=== PATIENT | male | born 1990 | race Caucasian/White ===

== ENCOUNTER 2019-07-14 19:28 | Observation (INO) ==
[2019-07-14 20:02] LABS: Basophils # 0.1 K/mcL (0.0-0.2); Basophils % 0.4 %; Eosinophils # 0.1 K/mcL (0.0-0.6); Eosinophils % 0.4 %; Hematocrit 41.1 % (37.5-50.1); Immature Granulocytes % 1.2 % (0-4); Lymphocytes # 0.4 K/mcL (0.6-4.6); Lymphocytes % 2.3 %; Mean Corpuscular HGB Conc 36.5 g/dL (31.6-35.5); Mean Corpuscular Hemoglobin 30.2 pg (28.0-33.3); Mean Corpuscular Volume 82.7 fL (83.0-100.0); Mean Platelet Volume 8.9 fL (9.4-12.4); Monocytes # 0.1 K/mcL (0.0-1.3); Monocytes % 0.3 %; Platelet Count 278 K/mcL (140-400); Red Blood Count 4.97 M/mcL (4.19-5.50); Red Cell Distribution Width 13.1 % (11.5-14.5); Segmented Neutrophils % 95.4 %; White Blood Count 17.1 K/mcL (4.3-11.1)
[2019-07-14 20:08] LABS: Neutrophils # 16.3 K/mcL (1.6-8.9)
[2019-07-14 20:10] LABS: INR 1.1; Prothrombin Time 12.7 Seconds (9.4-12.1)
[2019-07-14 20:11] LABS: VBG HCO3 26 mEq/L (21-27); VBG PCO2 31 mmHg (41-51); VBG PH 7.54 pH Units (7.32-7.42); VBG PO2 106 mmHg (25-50)
[2019-07-14 20:12] LABS: Activated Partial Thrombo Time 27.5 Seconds (26.0-36.0)
[2019-07-14] MEDS: 0.9 % Sodium Chloride 1,000 ML IVC SCH ×2 (20:13→21:11)
[2019-07-14 20:49] LABS: Platelet Estimate Normal (Normal)
[2019-07-14 20:51] LABS: Alanine Aminotransferase 21 Units/L (7-52); Albumin 4.2 g/dL (3.5-5.7); Albumin/Globulin Ratio 1.8 (1.1-2.2); Alkaline Phosphatase 71 Units/L (34-104); Aspartate Amino Transferase 41 Units/L (13-39); BUN/Creatinine Ratio 11 (6-26); Bilirubin,Direct 0.2 mg/dL (0.0-0.2); Bilirubin,Indirect 0.8 mg/dL (0.0-1.0); Blood Urea Nitrogen 14 mg/dL (6-20); Carbon Dioxide 24 mEq/L (23-29); Chloride 96 mEq/L (98-107); Globulin 2.4 g/dL (2.4-3.5); Glucose 100 mg/dL (70-105); Magnesium 1.1 mg/dL (1.6-2.6); Osmolality,Calculated 277 (280-300); Sodium 133 mEq/L (136-145); Total Protein 6.6 g/dL (6.4-8.9); Troponin I < 0.03 ng/mL (< 0.04); eGFR For African Americans > 60 (> 60); eGFR For Non-African Americans > 60 (> 60)
[2019-07-14] MEDS ORDERED: Potassium Phosphate 44 MEQ in 0.9 % Sodium Chloride 250 ML IVPB ONE (21:12)
[2019-07-14 21:56] LABS: Bilirubin,Urine Negative (Negative); Blood,Urine Negative (Negative); Clarity,Urine Clear (Clear); Color,Urine Yellow (Yellow); Glucose,Urine (UA) Normal (Normal); Ketones,Urine Trace mg/dL (Negative); Leukocyte Esterase,Urine Negative (Negative); Nitrite,Urine Negative (Negative); Protein,Urine 100 mg/dL (Neg-Trace); Specific Gravity,Urine 1.013 (1.010-1.025); Urobilinogen,Urine Normal (Normal)
[2019-07-14 21:59] LABS: Bacteria,Urine None Seen per hpf (None-Few); RBC,Urine 0-3 per hpf (0-3); Squamous Epithelial Cell,Urine Many per lpf (None-Few)
[2019-07-14] MEDS ORDERED: Ketorolac 30 MG/ML VIAL IVP ONE (22:06)
[2019-07-14 22:16] LABS: Hyaline Casts,Urine None Seen per lpf (None-Few)
[2019-07-14] MEDS ORDERED: cefTRIAXone 2,000 MG in Water for inj. (sterile) 20 ML IVP ONE (22:17)
[2019-07-15 00:29] LABS: Phosphorous < 1.0 mg/dL (2.7-4.5)
[2019-07-15 00:39] LABS: Red Blood Cell,CSF < 0.002 M/mcL
[2019-07-15 00:40] LABS: Amphetamine Screen,Urine Negative ng/mL (Cutoff=1000); Barbiturate Screen,Urine Negative ng/mL (Cutoff=200); Benzodiazepines Screen,Urine Negative ng/mL (Cutoff=200); Cannabinoid Screen,Urine Positive ng/mL (Cutoff = 50); Cocaine Screen,Urine Negative ng/mL (Cutoff= 300); Opiate Screen,Urine Negative ng/mL (Cutoff=300); Phencyclidine Screen,Urine Negative ng/mL (Cutoff=25)
[2019-07-15 00:41] LABS: Glucose,CSF 59 mg/dL (40-70); Total Protein,CSF 70 mg/dL (15-45)
[2019-07-15 00:50] LABS: Appearance,CSF Clear (Clear)
[2019-07-15 01:29] LABS: Basophils,CSF 0 %; Eosinophils,CSF 0 %; Monocytes,CSF 6.7 %
[2019-07-15 01:30] LABS: Other Cells,CSF 0 %
[2019-07-15] MEDS ORDERED: Acyclovir 800 MG in D5% in Water 250 ML IVPB ONE (01:49)
[2019-07-15] MEDS ORDERED: *HR* LORazepam 2 MG/ML VIAL IVP ONE (03:49)
[2019-07-15] MEDS ORDERED: *HR* LORazepam 2 MG/ML VIAL IVP PRN (04:34)
[2019-07-15 05:07] LABS: Basophils % 0.2 %; Eosinophils % 0.1 %; Mean Platelet Volume 8.8 fL (9.4-12.4); Monocytes % 2.7 %; Red Cell Distribution Width 13.2 % (11.5-14.5); Segmented Neutrophils % 92.7 %
[2019-07-15 05:09] LABS: Basophils # 0.1 K/mcL (0.0-0.2); Hematocrit 35.6 % (37.5-50.1); Immature Granulocytes % 1.3 % (0-4); Lymphocytes # 1.1 K/mcL (0.6-4.6); Mean Corpuscular HGB Conc 36.5 g/dL (31.6-35.5); Mean Corpuscular Hemoglobin 30.1 pg (28.0-33.3); Mean Corpuscular Volume 82.4 fL (83.0-100.0); Platelet Count 281 K/mcL (140-400); Red Blood Count 4.32 M/mcL (4.19-5.50)
[2019-07-15 05:19] LABS: Neutrophils # 34.5 K/mcL (1.6-8.9)
[2019-07-15 05:23] LABS: INR 1.2; Prothrombin Time 13.8 Seconds (9.4-12.1); White Blood Count 37.2 K/mcL (4.3-11.1)
[2019-07-15 05:34] LABS: Alanine Aminotransferase 17 Units/L (7-52); Albumin 3.9 g/dL (3.5-5.7); Albumin/Globulin Ratio 1.9 (1.1-2.2); Alkaline Phosphatase 53 Units/L (34-104); Aspartate Amino Transferase 23 Units/L (13-39); BUN/Creatinine Ratio 15 (6-26); Bilirubin,Total 0.6 mg/dL (0.3-1.0); Blood Urea Nitrogen 17 mg/dL (6-20); Carbon Dioxide 23 mEq/L (23-29); Chloride 103 mEq/L (98-107); Globulin 2.1 g/dL (2.4-3.5); Glucose 153 mg/dL (70-105); Magnesium 1.9 mg/dL (1.6-2.6); Osmolality,Calculated 287 (280-300); Potassium 3.8 mEq/L (3.5-5.1); Sodium 136 mEq/L (136-145); Troponin I < 0.03 ng/mL (< 0.04); eGFR For African Americans > 60 (> 60); eGFR For Non-African Americans > 60 (> 60)
[2019-07-15 06:07] LABS: Platelet Estimate Normal (Normal)
[2019-07-15] MEDS ORDERED: 0.9 % Sodium Chloride 1,000 ML IVC SCH (08:30)
[2019-07-15] MEDS ORDERED: cefTRIAXone 2,000 MG in Water for inj. (sterile) 20 ML IVP SCH (09:00)
[2019-07-15] MEDS ORDERED: BuPROPion SR (12 HR) 150 MG TABLET PO SCH (09:00)
[2019-07-15] MEDS ORDERED: ASENAPINE MALEATE 5 MG SL SCH (09:00)
[2019-07-15] MEDS ORDERED: Acyclovir 500 MG in D5% in Water 100 ML IVPB SCH (09:10)
[2019-07-15] MEDS: cloNIDine HCl 0.1 MG TABLET PO SCH ×2 (09:45→14:13)
[2019-07-15 10:21] VITALS: BP 128/70
[2019-07-15 12:53] LABS: Hepatitis B Surface Antigen Nonreactive (Nonreactive)
[2019-07-15 13:24] LABS: Hepatitis A Antibody IgM Nonreactive (Nonreactive); Hepatitis B Core IgM Nonreactive (Nonreactive)
[2019-07-15 13:25] LABS: Hepatitis C Virus Antibody Nonreactive (Nonreactive)
[2019-07-15] MEDS ORDERED: Acetaminophen 325 MG TABLET PO PRN (14:04)
[2019-07-15 14:43] LABS: Adenovirus Not Detected (Not Detect); Bordetella Pertussis Not Detected (Not Detect); Chlamydophila pneumoniae Not Detected (Not Detect); Coronavirus 229E Not Detected (Not Detect); Coronavirus HKU1 Not Detected (Not Detect); Coronavirus NL63 Not Detected (Not Detect); Coronavirus OC43 Not Detected (Not Detect); Human Metapneumovirus Not Detected (Not Detect); Human Rhinovirus/Enterovirus Not Detected (Not Detect); Influenza A Subtype 2009 H1 Not Detected (Not Detect); Influenza B Not Detected (Not Detect); Mycoplasma pneumoniae Not Detected (Not Detect); Parainfluenza Virus 1 Not Detected (Not Detect); Parainfluenza Virus 2 Not Detected (Not Detect); Parainfluenza Virus 3 Not Detected (Not Detect); Parainfluenza Virus 4 Not Detected (Not Detect); Respiratory Syncytial Virus Not Detected (Not Detect)
[2019-07-15] MEDS ORDERED: Aminoglycoside Consult 1 EACH MC ONE (14:44)
[2019-07-17 14:50] LABS: HSV 1 Glycoprotein G IgG CSF 0.01 IV (<=0.89); HSV 2 Glycoprotein G IgG CSF 0.01 IV (<=0.89)
== END 2019-07-15 14:45 | disposition left against medical advice (07) ==
LOC: 3NENU 19:28 → EMEROOARM 19:28 → SUATTDRO 07-15 02:09 → 3NENU 07-15 02:51
PROVIDERS: ADMIT Family Medicine; ATTEND Internal Medicine

== ENCOUNTER 2021-06-03 15:46 | Inpatient (IN) ==
[2021-06-03 16:40] LABS: Basophils # 0.1 K/mcL (0.0-0.2); Basophils % 0.8 %; Eosinophils # 0.1 K/mcL (0.0-0.6); Eosinophils % 1.1 %; Hematocrit 36.9 % (37.5-50.1); Hemoglobin 11.2 g/dL (12.9-16.9); Immature Granulocytes % 0.4 % (0-4); Lymphocytes # 1.4 K/mcL (0.6-4.6); Lymphocytes % 11.7 %; Mean Corpuscular HGB Conc 30.4 g/dL (31.6-35.5); Mean Corpuscular Hemoglobin 22.7 pg (28.0-33.3); Mean Corpuscular Volume 74.7 fL (83.0-100.0); Mean Platelet Volume 8.6 fL (9.4-12.4); Monocytes # 0.9 K/mcL (0.0-1.3); Monocytes % 7.7 %; Neutrophils # 9.3 K/mcL (1.6-8.9); Platelet Count 392 K/mcL (140-400); Red Blood Count 4.94 M/mcL (4.19-5.50); Red Cell Distribution Width 18.8 % (11.5-14.5); Segmented Neutrophils % 78.3 %; White Blood Count 11.9 K/mcL (4.3-11.1)
[2021-06-03 16:42] LABS: Bacteria,Urine Few per hpf (None-Few); Bilirubin,Urine Negative (Negative); Blood,Urine Negative (Negative); Clarity,Urine Clear (Clear); Color,Urine Yellow (Yellow); Glucose,Urine (UA) 30 mg/dL (Normal); Hyaline Casts,Urine Many per lpf (None Seen); Ketones,Urine Negative (Negative); Leukocyte Esterase,Urine Negative (Negative); Mucus,Urine Few per lpf (None-Few); Nitrite,Urine Negative (Negative); Protein,Urine 100 mg/dL (Neg-Trace); RBC,Urine 0-3 per hpf (0-3); Specific Gravity,Urine 1.026 (1.010-1.025); Squamous Epithelial Cell,Urine Few per hpf (None-Few); Urobilinogen,Urine Normal (Normal)
[2021-06-03 16:46] LABS: Amphetamine Screen,Urine Negative ng/mL (Cutoff=1000); Barbiturate Screen,Urine Negative ng/mL (Cutoff=200); Benzodiazepines Screen,Urine Negative ng/mL (Cutoff=200); Cannabinoid Screen,Urine Negative ng/mL (Cutoff = 50); Cocaine Screen,Urine Negative ng/mL (Cutoff= 300); Opiate Screen,Urine Negative ng/mL (Cutoff=300); Phencyclidine Screen,Urine Negative ng/mL (Cutoff=25)
[2021-06-03 16:59] LABS: Acetaminophen < 10 mcg/mL (10-20); Alanine Aminotransferase 16 Units/L (7-52); Albumin 4.8 g/dL (3.5-5.7); Albumin/Globulin Ratio 1.8 (1.1-2.2); Alkaline Phosphatase 56 Units/L (34-104); Aspartate Amino Transferase 24 Units/L (13-39); BUN/Creatinine Ratio 13 (6-26); Bilirubin,Direct 0.1 mg/dL (0.0-0.2); Bilirubin,Indirect 0.3 mg/dL (0.0-1.0); Bilirubin,Total 0.4 mg/dL (0.3-1.0); Blood Urea Nitrogen 14 mg/dL (6-20); Calcium 9.9 mg/dL (8.6-10.3); Carbon Dioxide 26 mEq/L (23-29); Chloride 101 mEq/L (98-107); Chol/HDL Ratio 3.2 (0-4.9); Cholesterol 224 mg/dL (< 200); Ethanol < 10 mg/dL (Less than 10); Globulin 2.6 g/dL (2.4-3.5); Glucose 111 mg/dL (70-105); HDL Cholesterol 69 mg/dL (40-59); LDL Cholesterol,Calculated 137 mg/dL (< 100); Osmolality,Calculated 283 (280-300); Potassium 4.2 mEq/L (3.5-5.1); Salicylate < 2.5 mg/dL (15.0-30.0); Sodium 136 mEq/L (136-145); Total Protein 7.4 g/dL (6.4-8.9); Triglycerides 89 mg/dL (< 150); eGFR For African Americans > 60 (> 60); eGFR For Non-African Americans > 60 (> 60)
[2021-06-03 17:11] LABS: Thyroid Stimulating Hormone 3.311 mcIU/mL (0.340-5.600)
[2021-06-03 17:17] LABS: Estimated Average Glucose 120 mg/dl; Hemoglobin A1C 5.8 %
[2021-06-03] MEDS ORDERED: Tdap (Boostrix) Vaccine 0.5 ML SYRINGE IM ONE (19:03)
[2021-06-03 20:14] LABS: Influenza A PCR Negative (Negative); Influenza B PCR Negative (Negative); Resp. Syncytial Virus PCR Negative (Negative)
[2021-06-03 20:15] LABS: SARS-CoV-2 by PCR (In House) Negative (Negative)
[2021-06-03] MEDS ORDERED: haloperidoL 5 MG TABLET PO PRN (20:33)
[2021-06-03] MEDS ORDERED: *HR* LORazepam 2 MG/ML VIAL IM PRN (20:33)
[2021-06-03] MEDS ORDERED: Haloperidol Lactate 5 MG/ML VIAL IM PRN (20:33)
[2021-06-03] MEDS ORDERED: *HR* LORazepam 1 MG TABLET PO PRN (20:33)
[2021-06-03] MEDS: Ibuprofen 400 MG TABLET PO PRN (20:57)
[2021-06-03] MEDS: cloNIDine HCL 0.1 MG TABLET PO PRN (21:44)
[2021-06-03] MEDS: Nicotine 2 MG GUM BC PRN (23:31)
[2021-06-03] MEDS: Baclofen 10 MG TABLET PO PRN (23:31)
[2021-06-03] MEDS: QUEtiapine Fumarate 25 MG TABLET PO PRN (23:31)
[2021-06-03] MEDS: Acetaminophen 325 MG TABLET PO PRN (23:32)
[2021-06-04] MEDS: Nicotine 21 MG PATCH.TD24 TD SCH (08:26)
[2021-06-04] MEDS: ARIPiprazole 5 MG TABLET PO SCH (08:27)
[2021-06-04] MEDS: hydrOXYzine pamoate 25 MG CAPSULE PO PRN ×2 (11:21→18:35)
[2021-06-04] MEDS: Ondansetron ODT 4 MG TAB.RAPDIS SL PRN (11:21)
[2021-06-04] MEDS: Ibuprofen 400 MG TABLET PO PRN ×2 (11:21→18:35)
[2021-06-04] MEDS: Baclofen 10 MG TABLET PO PRN (11:23)
[2021-06-04] MEDS: cloNIDine HCL 0.1 MG TABLET PO PRN (11:23)
[2021-06-04] MEDS: QUEtiapine Fumarate 25 MG TABLET PO PRN (20:54)
[2021-06-04] MEDS: Acetaminophen 325 MG TABLET PO PRN (20:54)
[2021-06-04] MEDS: Doxycycline 100 MG CAPSULE PO SCH (20:54)
[2021-06-05] MEDS: Nicotine 21 MG PATCH.TD24 TD SCH (09:01)
[2021-06-05] MEDS: Ondansetron ODT 4 MG TAB.RAPDIS SL PRN (09:02)
[2021-06-05] MEDS: hydrOXYzine pamoate 25 MG CAPSULE PO PRN ×2 (09:03→17:22)
[2021-06-05] MEDS: Doxycycline 100 MG CAPSULE PO SCH ×2 (09:03→21:05)
[2021-06-05] MEDS: Ibuprofen 400 MG TABLET PO PRN ×2 (09:03→15:04)
[2021-06-05] MEDS: Baclofen 10 MG TABLET PO PRN ×2 (09:04→15:04)
[2021-06-05] MEDS: ARIPiprazole 5 MG TABLET PO SCH (09:04)
[2021-06-05] MEDS: BuPROPion XL (24 HR) 150 MG TABLET PO SCH (09:04)
[2021-06-05] MEDS: cloNIDine HCL 0.1 MG TABLET PO PRN ×2 (09:04→17:22)
[2021-06-05] MEDS: Nicotine 2 MG GUM BC PRN ×2 (09:05→16:43)
[2021-06-05] MEDS: Acetaminophen 325 MG TABLET PO PRN (17:22)
[2021-06-05] MEDS: QUEtiapine Fumarate 25 MG TABLET PO PRN (21:05)
[2021-06-06] MEDS: Baclofen 10 MG TABLET PO PRN (05:51)
[2021-06-06] MEDS: hydrOXYzine pamoate 25 MG CAPSULE PO PRN ×3 (05:51→20:21)
[2021-06-06] MEDS: Ibuprofen 400 MG TABLET PO PRN ×2 (05:51→12:33)
[2021-06-06] MEDS: ARIPiprazole 5 MG TABLET PO SCH (09:22)
[2021-06-06] MEDS: Nicotine 2 MG GUM BC PRN ×4 (09:22→17:52)
[2021-06-06] MEDS: Nicotine 21 MG PATCH.TD24 TD SCH (09:22)
[2021-06-06] MEDS: cloNIDine HCL 0.1 MG TABLET PO PRN ×2 (09:23→20:21)
[2021-06-06] MEDS: BuPROPion XL (24 HR) 150 MG TABLET PO SCH (09:23)
[2021-06-06] MEDS: Acetaminophen 325 MG TABLET PO PRN (16:36)
[2021-06-06] MEDS: QUEtiapine Fumarate 25 MG TABLET PO PRN (20:21)
[2021-06-06 20:38] VITALS: TEMP 98.4; O2SAT 100
[2021-06-07] MEDS: Ondansetron ODT 4 MG TAB.RAPDIS SL PRN (01:33)
[2021-06-07] MEDS: Nicotine 2 MG GUM BC PRN ×2 (05:24→09:05)
[2021-06-07] MEDS: BuPROPion XL (24 HR) 150 MG TABLET PO SCH (08:02)
[2021-06-07] MEDS: Nicotine 21 MG PATCH.TD24 TD SCH (08:02)
[2021-06-07] MEDS: ARIPiprazole 5 MG TABLET PO SCH (08:02)
[2021-06-07 08:05] VITALS: BP 115/71; PULSE 95
== END 2021-06-07 12:00 | disposition home or self-care (01) | DRG 753 ==
LOC: EMEROOARM 15:46 → 1ANU 20:34
PROVIDERS: ADMIT Psychiatry & Neurology Forensic Psychiatry; ATTEND Psychiatry & Neurology Forensic Psychiatry

== ENCOUNTER 2021-12-28 09:49 | Observation (INO) ==
[2021-12-28] MEDS ORDERED: *HR* HYDROmorphone (PF) 1 MG/ML SYRINGE IVP ONE (10:10)
[2021-12-28] MEDS ORDERED: ceFAZolin 2,000 MG in 0.9 % Sodium Chloride 100 ML IVPB ONE (11:32)
[2021-12-28] MEDS ORDERED: 0.9 % Sodium Chloride 1,000 ML IVC SCH (12:00)
[2021-12-28] MEDS ORDERED: Ondansetron 4 MG/2 ML VIAL IVP PRN ×4 (12:00→20:16)
[2021-12-28] MEDS ORDERED: Naloxone 0.4 MG/ML INJ IVP PRN ×2 (12:00→20:16)
[2021-12-28] MEDS ORDERED: *HR* HYDROmorphone (PF) 1 MG/ML SYRINGE IVP PRN (12:02)
[2021-12-28 12:03] LABS: Basophils # 0.1 K/mcL (0.0-0.2); Basophils % 1.5 %; Eosinophils # 0.8 K/mcL (0.0-0.6); Eosinophils % 12.7 %; Hematocrit 38.2 % (37.5-50.1); Hemoglobin 12.1 g/dL (12.9-16.9); Immature Granulocytes % 0.3 % (0-4); Lymphocytes # 1.9 K/mcL (0.6-4.6); Lymphocytes % 31.1 %; Mean Corpuscular HGB Conc 31.7 g/dL (31.6-35.5); Mean Corpuscular Hemoglobin 24.8 pg (28.0-33.3); Mean Corpuscular Volume 78.4 fL (83.0-100.0); Mean Platelet Volume 9.5 fL (9.4-12.4); Monocytes # 0.6 K/mcL (0.0-1.3); Monocytes % 9.5 %; Neutrophils # 2.7 K/mcL (1.6-8.9); Platelet Count 291 K/mcL (140-400); Red Blood Count 4.87 M/mcL (4.19-5.50); Red Cell Distribution Width 16.9 % (11.5-14.5); Segmented Neutrophils % 44.9 %; White Blood Count 6.1 K/mcL (4.3-11.1)
[2021-12-28 12:25] LABS: BUN/Creatinine Ratio 19 (6-26); Blood Urea Nitrogen 20 mg/dL (6-20); Calcium 9.6 mg/dL (8.6-10.3); Carbon Dioxide 29 mEq/L (23-29); Chloride 102 mEq/L (98-107); Glucose 93 mg/dL (70-105); Osmolality,Calculated 288 (280-300); Potassium 4.1 mEq/L (3.5-5.1); Sodium 138 mEq/L (136-145); eGFR For African Americans > 60 (> 60); eGFR For Non-African Americans > 60 (> 60)
[2021-12-28] MEDS ORDERED: *HR* OxyCODONE Immed Rel 5 MG TABLET PO PRN ×2 (15:44→20:16)
[2021-12-28] MEDS ORDERED: *HR* FentaNYL (PF) 100 MCG/2 ML VIAL IVP PRN ×2 (15:44→20:16)
[2021-12-28] MEDS ORDERED: *HR* Labetalol 20 MG/4 ML SYRINGE IVP PRN ×2 (15:44→20:16)
[2021-12-28] MEDS ORDERED: *HR* HYDROmorphone PF 0.5 MG/0.5 ML SYRINGE IVP PRN ×2 (15:44→20:16)
[2021-12-28] MEDS ORDERED: *HR* OxyCODONE Immed Rel 5 MG TABLET PO ONE (15:45)
[2021-12-28] MEDS ORDERED: Pregabalin 75 MG CAPSULE PO ONE (15:45)
[2021-12-28] MEDS ORDERED: tiZANidine 4 MG TABLET PO SCH (15:45)
[2021-12-28] MEDS ORDERED: Famotidine 20 MG TABLET PO ONE (15:45)
[2021-12-28] MEDS ORDERED: *HR* FentaNYL (PF) 100 MCG/2 ML VIAL ONE (16:18)
[2021-12-28] MEDS ORDERED: *HR* Propofol 200 MG/20 ML VIAL IVP ONE ×2 (16:18→16:58)
[2021-12-28] MEDS ORDERED: Lidocaine -MPF 2% 5 ML VIAL ONE (16:19)
[2021-12-28] MEDS ORDERED: *HR* Succinylcholine 200 MG/10 ML VIAL IVP ONE (16:19)
[2021-12-28] MEDS ORDERED: Lidocaine HCL 4 ML Topical Solution (Laryng-O-Jet Kit Sterile Pak) TP ONE (16:22)
[2021-12-28] MEDS ORDERED: *HR* Rocuronium Bromide 50 MG/5 ML VIAL ONE ×2 (16:26→18:05)
[2021-12-28] MEDS ORDERED: *HR* Midazolam HCl 2 MG/2 ML VIAL ONE (16:30)
[2021-12-28] MEDS ORDERED: Bupivacaine-MPF 0.25% 10 ML VIAL ONE (16:40)
[2021-12-28] MEDS ORDERED: Ondansetron 4 MG/2 ML VIAL ONE (17:10)
[2021-12-28] MEDS ORDERED: EPHEDrine 50 MG/ML VIAL ONE (17:31)
[2021-12-28] MEDS ORDERED: Bupivacaine 0.5%-Epi 1:200,000 50 ML VIAL ONE (17:45)
[2021-12-28] MEDS ORDERED: Sugammadex Sodium 200 MG/2 ML VIAL IV ONE (18:07)
[2021-12-28] MEDS ORDERED: BuPROPion SR (12 HR) 150 MG TABLET PO SCH (21:00)
[2021-12-28] MEDS: BuPROPion SR (12 HR) 150 MG TABLET PO SCH (21:16)
[2021-12-28] MEDS: 0.9 % Sodium Chloride 1,000 ML IVC SCH (21:17)
[2021-12-28] MEDS: tiZANidine 4 MG TABLET PO SCH (21:17)
[2021-12-29 01:40] LABS: Basophils # 0.1 K/mcL (0.0-0.2); Basophils % 0.6 %; Eosinophils # 0.1 K/mcL (0.0-0.6); Eosinophils % 0.8 %; Hematocrit 35.8 % (37.5-50.1); Hemoglobin 11.2 g/dL (12.9-16.9); Immature Granulocytes % 0.5 % (0-4); Lymphocytes # 1.1 K/mcL (0.6-4.6); Lymphocytes % 11.3 %; Mean Corpuscular HGB Conc 31.3 g/dL (31.6-35.5); Mean Corpuscular Hemoglobin 24.7 pg (28.0-33.3); Mean Platelet Volume 9.2 fL (9.4-12.4); Monocytes # 0.6 K/mcL (0.0-1.3); Monocytes % 6.4 %; Neutrophils # 7.9 K/mcL (1.6-8.9); Platelet Count 282 K/mcL (140-400); Red Blood Count 4.53 M/mcL (4.19-5.50); Red Cell Distribution Width 16.9 % (11.5-14.5); Segmented Neutrophils % 80.4 %
[2021-12-29 01:44] LABS: White Blood Count 9.8 K/mcL (4.3-11.1)
[2021-12-29 01:58] LABS: BUN/Creatinine Ratio 16 (6-26); Blood Urea Nitrogen 16 mg/dL (6-20); Calcium 8.9 mg/dL (8.6-10.3); Carbon Dioxide 30 mEq/L (23-29); Chloride 103 mEq/L (98-107); Glucose 125 mg/dL (70-105); Osmolality,Calculated 289 (280-300); Potassium 4.6 mEq/L (3.5-5.1); Sodium 138 mEq/L (136-145); eGFR For African Americans > 60 (> 60); eGFR For Non-African Americans > 60 (> 60)
[2021-12-29] MEDS ORDERED: ceFAZolin 1,000 MG in Water for inj. (sterile) 10 ML IVP SCH (08:00)
[2021-12-29] MEDS ORDERED: ARIPiprazole 5 MG TABLET PO SCH (09:00)
[2021-12-29] MEDS: BuPROPion SR (12 HR) 150 MG TABLET PO SCH ×2 (09:51→20:20)
[2021-12-29] MEDS: tiZANidine 4 MG TABLET PO SCH ×3 (09:51→20:20)
[2021-12-29] MEDS: ARIPiprazole 5 MG TABLET PO SCH (09:52)
[2021-12-29] MEDS: ceFAZolin 1,000 MG in Water for inj. (sterile) 10 ML IVP SCH ×2 (09:55→17:45)
[2021-12-29] MEDS: 0.9 % Sodium Chloride 1,000 ML IVC SCH (09:56)
[2021-12-29] MEDS ORDERED: *HR* HYDROmorphone (PF) 1 MG/ML SYRINGE IVP PRN (17:47)
[2021-12-29] MEDS: *HR* HYDROmorphone (PF) 1 MG/ML SYRINGE IVP PRN ×2 (18:43→22:27)
[2021-12-29] MEDS: *HR* OxyCODONE/APAP 10/325 TABLET PO PRN (20:20)
[2021-12-30] MEDS: ceFAZolin 1,000 MG in Water for inj. (sterile) 10 ML IVP SCH ×2 (00:40→07:53)
[2021-12-30] MEDS: *HR* OxyCODONE/APAP 10/325 TABLET PO PRN ×3 (00:40→12:26)
[2021-12-30] MEDS: *HR* HYDROmorphone (PF) 1 MG/ML SYRINGE IVP PRN ×2 (02:35→07:54)
[2021-12-30 06:00] LABS: Basophils # 0.1 K/mcL (0.0-0.2); Basophils % 0.6 %; Eosinophils # 0.4 K/mcL (0.0-0.6); Hematocrit 35.9 % (37.5-50.1); Hemoglobin 11.6 g/dL (12.9-16.9); Immature Granulocytes % 0.3 % (0-4); Lymphocytes % 19.4 %; Mean Corpuscular HGB Conc 32.3 g/dL (31.6-35.5); Mean Corpuscular Hemoglobin 24.8 pg (28.0-33.3); Mean Corpuscular Volume 76.9 fL (83.0-100.0); Mean Platelet Volume 9.4 fL (9.4-12.4); Monocytes % 9.1 %; Platelet Count 296 K/mcL (140-400); Red Blood Count 4.67 M/mcL (4.19-5.50); Red Cell Distribution Width 16.8 % (11.5-14.5); Segmented Neutrophils % 66.6 %; White Blood Count 10.4 K/mcL (4.3-11.1)
[2021-12-30 06:17] LABS: BUN/Creatinine Ratio 10 (6-26); Blood Urea Nitrogen 9 mg/dL (6-20); Calcium 9.2 mg/dL (8.6-10.3); Carbon Dioxide 29 mEq/L (23-29); Chloride 100 mEq/L (98-107); Glucose 94 mg/dL (70-105); Magnesium 1.8 mg/dL (1.6-2.6); Osmolality,Calculated 280 (280-300); Potassium 3.7 mEq/L (3.5-5.1); Sodium 136 mEq/L (136-145); eGFR For African Americans > 60 (> 60); eGFR For Non-African Americans > 60 (> 60)
[2021-12-30 07:34] VITALS: PULSE 61; TEMP 97.9; O2SAT 99
[2021-12-30] MEDS: tiZANidine 4 MG TABLET PO SCH (07:52)
[2021-12-30] MEDS: BuPROPion SR (12 HR) 150 MG TABLET PO SCH (07:52)
[2021-12-30] MEDS: ARIPiprazole 5 MG TABLET PO SCH (07:52)
[2021-12-30 11:35] VITALS: BP 131/87
== END 2021-12-30 13:25 | disposition home or self-care (01) ==
LOC: 4WAOSI 09:49 → EMEROOARM 09:49 → SUATTDRO 12:19 → 4WAOSI 13:43
PROVIDERS: ADMIT Internal Medicine; ATTEND Pharmacist

== ENCOUNTER 2022-02-05 20:16 | Observation (INO) ==
[2022-02-05 21:55] LABS: Basophils # 0.1 K/mcL (0.0-0.2); Basophils % 0.6 %; Eosinophils # 0.8 K/mcL (0.0-0.6); Eosinophils % 5.1 %; Immature Granulocytes % 0.3 % (0-4); Lymphocytes # 2.7 K/mcL (0.6-4.6); Lymphocytes % 17.8 %; Mean Corpuscular HGB Conc 31.6 g/dL (31.6-35.5); Mean Corpuscular Hemoglobin 25.2 pg (28.0-33.3); Mean Corpuscular Volume 79.8 fL (83.0-100.0); Mean Platelet Volume 9.2 fL (9.4-12.4); Monocytes # 1.1 K/mcL (0.0-1.3); Monocytes % 7.4 %; Neutrophils # 10.3 K/mcL (1.6-8.9); Platelet Count 262 K/mcL (140-400); Red Blood Count 4.76 M/mcL (4.19-5.50); Red Cell Distribution Width 15.8 % (11.5-14.5); Segmented Neutrophils % 68.8 %
[2022-02-05 22:17] LABS: BUN/Creatinine Ratio 22 (6-26); Blood Urea Nitrogen 22 mg/dL (6-20); C-Reactive Protein 19 mg/L (Less than 10); Calcium 9.3 mg/dL (8.6-10.3); Carbon Dioxide 27 mEq/L (23-29); Chloride 98 mEq/L (98-107); Glucose 76 mg/dL (70-105); Osmolality,Calculated 278 (280-300); Potassium 3.9 mEq/L (3.5-5.1); Sodium 133 mEq/L (136-145)
[2022-02-05] MEDS ORDERED: Doxycycline 100 MG in 0.9 % Sodium Chloride Mini Bag 100 ML IVPB ONE (23:29)
[2022-02-05] MEDS ORDERED: Ondansetron ODT 4 MG TAB.RAPDIS SL PRN (23:35)
[2022-02-05] MEDS ORDERED: Acetaminophen 325 MG TABLET PO PRN (23:35)
[2022-02-05] MEDS ORDERED: Melatonin 3 MG TABLET PO PRN (23:35)
[2022-02-05] MEDS ORDERED: Naloxone 0.4 MG/ML INJ IVP PRN (23:35)
[2022-02-06 00:29] LABS: Bilirubin,Urine Negative (Negative); Blood,Urine Negative (Negative); Clarity,Urine Clear (Clear); Color,Urine Colorless (Yellow); Glucose,Urine (UA) Normal (Normal); Ketones,Urine Negative (Negative); Leukocyte Esterase,Urine Negative (Negative); Nitrite,Urine Negative (Negative); Protein,Urine Negative (Neg-Trace); Specific Gravity,Urine 1.008 (1.010-1.025); Urobilinogen,Urine Normal (Normal)
[2022-02-06 00:42] LABS: Amphetamine Screen,Urine Negative ng/mL (Cutoff=1000); Barbiturate Screen,Urine Negative ng/mL (Cutoff=200); Benzodiazepines Screen,Urine Negative ng/mL (Cutoff=200); Cannabinoid Screen,Urine Positive ng/mL (Cutoff = 50); Cocaine Screen,Urine Negative ng/mL (Cutoff= 300); Opiate Screen,Urine Negative ng/mL (Cutoff=300); Phencyclidine Screen,Urine Negative ng/mL (Cutoff=25)
[2022-02-06 03:05] LABS: Hematocrit 34.3 % (37.5-50.1); Hemoglobin 10.8 g/dL (12.9-16.9); Mean Corpuscular HGB Conc 31.5 g/dL (31.6-35.5); Mean Corpuscular Hemoglobin 25.1 pg (28.0-33.3); Mean Corpuscular Volume 79.6 fL (83.0-100.0); Mean Platelet Volume 9.2 fL (9.4-12.4); Platelet Count 255 K/mcL (140-400); Red Blood Count 4.31 M/mcL (4.19-5.50); Red Cell Distribution Width 15.7 % (11.5-14.5); White Blood Count 10.2 K/mcL (4.3-11.1)
[2022-02-06 03:25] LABS: BUN/Creatinine Ratio 21 (6-26); Blood Urea Nitrogen 20 mg/dL (6-20); Calcium 9.1 mg/dL (8.6-10.3); Carbon Dioxide 28 mEq/L (23-29); Chloride 100 mEq/L (98-107); Glucose 95 mg/dL (70-105); Osmolality,Calculated 282 (280-300); Phosphorous 4.1 mg/dL (2.7-4.5); Potassium 3.7 mEq/L (3.5-5.1); Sodium 135 mEq/L (136-145)
[2022-02-06] MEDS: Piperacillin/Tazobactam 3.375 GM in 0.9 % Sodium Chloride Mini Bag 100 ML IVPB SCH ×2 (08:29→17:23)
[2022-02-06] MEDS: Doxycycline 100 MG in 0.9 % Sodium Chloride Mini Bag 100 ML IVPB SCH ×2 (11:57→23:40)
[2022-02-06] MEDS: Ketorolac 30 MG/ML VIAL IVP PRN ×2 (13:17→22:01)
[2022-02-07] MEDS: Piperacillin/Tazobactam 3.375 GM in 0.9 % Sodium Chloride Mini Bag 100 ML IVPB SCH ×2 (01:28→09:00)
[2022-02-07 03:42] VITALS: TEMP 97.7
[2022-02-07 06:51] VITALS: BP 121/73; PULSE 57; O2SAT 97
[2022-02-07] MEDS ORDERED: BuPROPion SR (12 HR) 150 MG TABLET PO SCH (09:00)
[2022-02-07] MEDS ORDERED: ARIPiprazole 5 MG TABLET PO SCH (21:00)
== END 2022-02-07 10:52 | disposition home or self-care (01) ==
LOC: EMEROOARM 20:16 → 3BNU 20:16 → SUATTDRO 23:42 → 3BNU 02-06 00:36
PROVIDERS: ADMIT Internal Medicine; ATTEND Internal Medicine